=== PATIENT | female | born 1980 | race Caucasian/White ===

== ENCOUNTER 2022-05-23 08:05 | Inpatient (IN) ==
[2022-05-23] MEDS ORDERED: LIDOCAINE 1% LOCAL 20 ML VIAL INFIL PRN (08:13)
[2022-05-23] MEDS ORDERED: PENICILLIN G POTASSIUM 6 MU in DEXTROSE 5% 250 ML IV STA (08:13)
[2022-05-23] MEDS ORDERED: OXYTOCIN 30 UNITS/500 ML BAG IV PRN ×3 (08:13→22:22)
[2022-05-23 08:47] LABS: Hematocrit (blood only) 34.8 % (34.1-44.9); Hemoglobin 11.7 g/dl (12.0-16.0); Mean Corpuscular Hemoglobin 29.1 pg (25.0-34.0); Mean Corpuscular Hgb Conc 33.6 g/dL (32.0-36.0); Mean Corpuscular Volume 86.6 fL (80.0-100.0); Mean Platelet Volume 11.5 fL (9.4-12.3); Platelet Count 256 K/uL (130-400); RDW Coefficient of Variation 14.2 % (11.5-14.5); RDW Standard Deviation 44.8 fL (36.4-46.3); Red Blood Count 4.02 M/uL (3.93-5.22)
[2022-05-23] MEDS: LACTATED RINGER'S 1,000 ML IV PRN ×2 (09:55→19:30)
--- NOTE | 2022-05-23 10:31 | History & Physical Report ---
Date of Service May 23, 2022 Assessment & Plan (1) Supervision of elderly multigravida: Plan: IUP at 39 weeks requesting elective IOL because she prefers a female provider cervical balloon placed and will start pitocin augmentation start PCN when more regular contractions anticipate vaginal Admission and Anticipated Discharge Date Admission Date: May 23, 2022 History of Present Illness Primary Care Provider: Horacio Garcia MD Patient is 41 yo female EDC 05/27/22 who presents at 39+ weeks for elective IOL. complicated by AMA status and hyperthyroidism. testing has been reassuring. GBS -Positive Allergies Allergy/AdvReac Type Severity Reaction Status Date / Time No Known Allergies Allergy Verified 05/22/22 14:47 Home Medications Medication Instructions Recorded Confirmed Type cholecalciferol (vitamin D3) 1,250 1,250 mcg PO .COMPLEX #14 caps 07/30/21 05/23/22 Rx mcg (50,000 unit) capsule (D3-50 Cholecalciferol) prenat.vits,hilario,fmn-mzso-boajt 1 tab PO DAILY 11/08/21 05/23/22 History methimazole 10 mg tablet 10 mg PO DAILY #30 tabs 04/24/22 05/23/22 Rx Patient History Medical History Left thyroid nodule 4.1 cm, S/P FNA 04/2021 Showed AUS, Thyroseq is pending. 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 current occupational status: employed current occupation: microbiolgist Other Information That Helps Us Care for You: No Feels Safe at Home: Yes Safety Concerns: Feels Safe At This Time Assistive Devices: None Review of Systems All systems reviewed & are unremarkable except as noted in HPI & below Physical Exam Constitutional: WD/WN, vitals as above Psychiatric: A+Ox3, euthymic affect Genitourinary: OB Exam Abdomen: + vertex (confirmed by sono) and + estimated weight (7-8 pounds) Manual OB Exam: + cervical dilation 1 cm, + cervical effacement 50% and + station high OB Exam Monitor Tracing: + external FHT monitor used, + external uterine monitor used, + category I and + normal FHT variability cervical balloon placed under direct visualization. balloon filled with 35cc water and placed on traction. patient tolerated procedure well. Results & Data ([facility]) Vital Signs (Past 12 Hours) Vital Signs Temp Pulse Resp BP 05/23/22 09:30 98.2 F 20 05/23/22 10:04 75 05/23/22 10:04 125/72 05/23/22 08:22 98.2 F 91 H 20 128/64 Coding Level of Care Code None Diagnoses Supervision of elderly multigravida O09.529
[2022-05-23] MEDS: PENICILLIN G POTASSIUM 3 MU in DEXTROSE 5% 100 ML IV PRN ×3 (15:15→23:27)
[2022-05-23] MEDS ORDERED: ePHEDrine sulfate 50 MG/ML AMP ONE (15:22)
[2022-05-23] MEDS ORDERED: fentaNYL citrate 100 MCG/2 ML VIAL ONE ×2 (15:22→23:15)
[2022-05-23] MEDS ORDERED: LIDOCAINE 2%/EPINEPHRINE 1:200,000 20 ML SDV ONE (15:22)
[2022-05-23] MEDS ORDERED: SODIUM CHLORIDE 0.9% INJ 10 ML VIAL ONE (15:22)
[2022-05-23] MEDS ORDERED: BUPIVACAINE 0.25% 30 ML VIAL ONE ×2 (15:22→23:15)
[2022-05-23] MEDS ORDERED: fentaNYL 2MCG/ML ROPIVACAINE 1.25MG/ML 100 ML BAG EPI ONE (15:23)
--- NOTE | 2022-05-23 16:01 | Anesthesiology Consultation ---
Date of Service May 23, 2022 Assessment & Plan Chart Review Chart Review: Acceptable Risk for Surgery and Acceptable Risk for Labor Epidural Consults Requested none ASA ASA2 Proposed Anesthesia Anesthesia Type: Labor Epidural Risk / Benefits Reviewed With: PT / POA / Parent / Guardian, Accepts Plan and Informed Consent Obtained History Height/Weight Height: 5 ft 2 in Weight: 101.151 kg Allergies Allergy/AdvReac Type Severity Reaction Status Date / Time No Known Allergies Allergy Verified 05/22/22 14:47 Medications Home Medications Medication Instructions Recorded Confirmed Last Taken cholecalciferol (vitamin D3) 1,250 1,250 mcg PO .COMPLEX #14 caps 07/30/21 05/23/22 05/22/22 15:00 mcg (50,000 unit) capsule (D3-50 Cholecalciferol) prenat.vits,hilario,rqw-rpbk-zeypx 1 tab PO DAILY 11/08/21 05/23/22 05/22/22 15:00 methimazole 10 mg tablet 10 mg PO DAILY #30 tabs 04/24/22 05/23/22 05/22/22 15:00 Active Medications Generic Name Dose Route Start Last Admin Trade Name Freq PRN Reason Stop Dose Admin Lactated Ringer's 1,000 mls @ 125 mls/hr 05/23/22 08:13 05/23/22 09:55 Lr IV 05/25/22 08:12 125 mls/hr .Q8H PRN Administration L&D Protocol Protocol Penicillin G Potassium 3 mu/ 106 mls @ 100 mls/hr 05/23/22 11:13 05/23/22 15:15 Dextrose IV 06/02/22 11:12 100 mls/hr Q4H PRN Administration GBS(+) Until Delivery Oxytocin 30 units in 500 mls @ 10 mls/hr 05/23/22 08:15 05/23/22 15:01 Pitocin IV 05/25/22 08:14 0.6 units/hr .Q24H PRN 10 mls/hr Labor Induction/Augmentation Titration Protocol 0.6 UNITS/HR NPO Date Last Intake of Fluids: 05/23/22 Date Last Intake of Solids: 05/23/22 Past Medical History Medical History Left thyroid nodule 4.1 cm, S/P FNA 04/2021 Showed AUS, Thyroseq is pending. Also has mild subclinical Hyperthyroidism Multinodular goiter No known problems Obesity (BMI 30-39.9) Right thyroid nodule 1.55 cm right isthmus hypoechoic Vitamin D deficiency start vitamin-D replacement with 67676 IU weekly 07/30/2021 Exercise / Class Metabolic Activity II 4-5 Yardwork/Stairs/Walk up hill Past Family History Family History Father Heart disease Hypertension Aunt Uterine cancer Colorectal cancer Denies family history of Ovarian cancer Breast cancer Past Surgical History Surgical History S/P appy Past Anesthesia History No Hx of Anesthesia Complications and No Family Hx of Anesthesia Complications History of PONV No Hx of PONV and No Hx of Motion Sickness Social History Smoking Status: Never smoker Hx Alcohol Use: No Hx Substance Use: No substance use type: does not use Physical Exam Vital Signs Last Vital Signs Temp 36.8 C 05/23/22 12:24 Pulse 73 05/23/22 16:24 Resp 20 05/23/22 12:24 BP 123/76 05/23/22 16:24 Pulse Ox 98 05/23/22 16:23 Constitutional WD/WN, vitals as above cooperative ENMT Thyromental Distance: > or= 3.5 Finger Breadths Mallampati Class: III Neck trachea midline, no thyromegaly + thick neck Respiratory normal respiratory effort, lungs clear to auscultation Cardiovascular RRR, no murmur, no edema Heart Sounds: normal S1 and normal S2 Palpation: normal PMI Musculoskeletal Head/Neck/Chest: normocephalic and head atraumatic Spine: normal cervical ROM Neurologic normal touch/pain/proprioception, CN's II-XI intact bilaterally (Grossly intact) and moves all extremities Psychiatric A+Ox3, euthymic affect Testing Laboratory Results 05/23/22 08:28 Blood Type A Positive 05/23/22 08:28 Antibody Screen NEGATIVE 05/23/22 08:28
[2022-05-23] MEDS ORDERED: ePHEDrine sulfate 50 MG/ML AMP IV PRN (16:28)
[2022-05-23] MEDS ORDERED: METOCLOPRAMIDE HCL 20 MG in SODIUM CHLORIDE 0.9% 50 ML IV PRN (16:28)
[2022-05-23] MEDS ORDERED: NALOXONE HCL 1 MG in SODIUM CHLORIDE 0.9% 1000ML 1,000 ML IV PRN (16:28)
[2022-05-23] MEDS ORDERED: NALOXONE HCL 0.4 MG/1 ML VIAL/CARP IV PRN (16:28)
[2022-05-23] MEDS ORDERED: PROMETHAZINE HCL 25 MG in SODIUM CHLORIDE 0.9% 50 ML IV PRN (16:28)
[2022-05-23] MEDS ORDERED: fentaNYL 2MCG/ML ROPIVACAINE 1.25MG/ML 100 ML BAG EPI PRN (16:28)
[2022-05-23] MEDS ORDERED: NALBUPHINE HCL INJ 10 MG/ML AMP IV PRN (16:28)
[2022-05-23] MEDS ORDERED: diphenhydrAMINE 50 MG/ML VIAL IV PRN (16:28)
[2022-05-23] MEDS ORDERED: ONDANSETRON INJ 2 MG/ML 2 ML VIAL IV PRN (16:28)
[2022-05-23] MEDS ORDERED: NURSING L&D Epidural Breakthrough Pain Update ONE ×2 (22:42→23:39)
[2022-05-24] MEDS ORDERED: IBUPROFEN 600 MG TAB PO PRN (01:28)
[2022-05-24] MEDS ORDERED: ACETAMINOPHEN 325 MG TAB PO PRN (01:28)
[2022-05-24] MEDS ORDERED: DIPHTHERIA/TETANUS/PERTUSSIS 0.5 ML SYR/VIAL IM ONE (01:28)
[2022-05-24] MEDS ORDERED: HYDROCORTISONE ACETATE 25 MG SUPP PR PRN (01:28)
[2022-05-24] MEDS ORDERED: oxyCODONE/ACETAMINOPHEN 5mg/325mg TAB PO PRN (01:28)
[2022-05-24] MEDS ORDERED: BENZOCAINE 20% AER SPR 82.5 GM CAN EXT PRN (01:28)
[2022-05-24] MEDS ORDERED: OXYTOCIN 30 UNITS/500 ML BAG IV PRN (01:28)
[2022-05-24] MEDS ORDERED: ceFAZolin 2000MG 2,000 MG/15 ML SYR IV SCH (01:30)
[2022-05-24] MEDS ORDERED: ceFAZolin 2000MG 2,000 MG/15 ML SYR IV ONE (01:43)
--- NOTE | 2022-05-24 01:44 | Delivery Summary ---
Vaginal Delivery Summary Date of Service May 24, 2022 Vaginal Delivery Summary and 1st Degree LAC Patient is a 41-year-old 2 para 1-0-0-1 female EDC of 05/27/2022 presents at 39-4/7 weeks for elective induction of labor because of preference for a female provider. A cervical balloon was placed on admission and Pitocin augmentation was begun. Membranes were then ruptured for a copious amount of meconium stained fluid. She received effective epidural analgesia. She progressed to complete and pushed effectively over intact perineum for delivery of a viable female infant. After the head delivered the rest the infant delivered easily and was placed on the mother's abdomen for further attention and drying. The cord was clamped and cut after 1 minute. The infant was vigorous and crying and moving all 4 limbs. While delivering the placenta the umbilical cord avulsed with gentle traction. The placenta was then manually removed. Post extraction exploration of the uterine cavity revealed no retained membranes or placental tissue. Fundus was firm and bleeding was minimal. Estimated blood loss is 200 cc. First-degree laceration was repaired with 3-0 chromic in the usual fashion. Mother and infant were doing well after delivery. [facility] [place] Vaginal Delivery Charge Delivery Type Details: and 1st Degree LAC
--- NOTE | 2022-05-24 06:05 | Anesthesia Procedure Note ---
Date of Service May 24, 2022 Anesthesia Post Epidural Note Vital Signs Vital Signs: Temp Pulse Resp BP Pulse Ox O2 Del Method 36.9 C 95 H 17 109/75 98 05/24/22 03:45 05/24/22 03:45 05/24/22 03:45 05/24/22 03:45 05/24/22 03:45 05/24/22 03:45 Pain Intensity Back: Pain Intensity: 5 Notes Mental Status: alert / awake / arousable and participated in evaluation Nausea / Vomiting: adequately controlled Pain: adequately controlled Airway Patency, RR, SpO2: stable & adequate BP & HR: stable & adequate Hydration State: stable & adequate Neuraxial Anesthesia: was administered and sensory block resolved Anesthetic Complications: no major complications apparent and Pt Satisfied with anesthetic care Epidural: Removed without complications and With tip intact
--- NOTE | 2022-05-24 08:52 | Obstetrical Progress Note ---
Date of Service May 24, 2022 Assessment & Plan (1) Encounter for care and examination after delivery: satisfactory course fundus tender but understandably because of manual extraction of placenta and fundal massage continue current plan Subjective Ambulation: ambulating normally Voiding: no voiding problems Passing Gas:: Yes Diet Tolerance:: regular diet Lochia:: Small Feeding Type:: breast feeding Review of Systems All systems reviewed & are unremarkable except as noted in HPI & below Physical Exam Constitutional WD/WN, vitals as above Psychiatric A+Ox3, euthymic affect Genitourinary OB Exam Abdomen: + fundal height Fundus: + firm and + relation to umbilicus (at U) Results & Data ([facility]) Vital Signs (Past 12 Hours) Vital Signs Temp Pulse Pulse Resp BP BP Pulse Ox 05/24/22 03:45 98.4 F 95 H 17 109/75 98 05/24/22 03:20 18 05/24/22 02:50 18 05/24/22 02:20 18 05/24/22 02:05 18 05/24/22 01:50 18 05/24/22 01:35 18 05/24/22 01:20 98.8 F 18 05/23/22 23:00 98.8 F 18 05/24/22 03:21 100 H 116/69 05/24/22 03:12 97 H 109/61 05/24/22 03:02 106 H 121/62 05/24/22 02:52 96 H 125/69 05/24/22 02:42 96 H 123/64 05/24/22 02:32 93 H 123/69 05/24/22 02:22 96 H 116/71 05/24/22 02:12 100 H 109/68 05/24/22 02:04 96 H 96 05/24/22 02:02 98 H 115/62 05/24/22 01:59 99 H 98 05/24/22 01:54 94 H 96 05/24/22 01:52 89 104/60 05/24/22 01:49 104 H 96 05/24/22 01:45 94 H 116/62 05/24/22 01:44 91 H 96 05/24/22 01:39 99 H 96 05/24/22 01:34 103 H 97 05/24/22 01:29 104 H 97 05/24/22 01:24 96 H 97 05/24/22 01:22 96 H 119/73 05/24/22 01:19 97 H 96 05/24/22 01:14 95 05/24/22 01:14 97 H 05/24/22 01:14 99 H 94 05/24/22 01:09 95 H 96 05/24/22 01:04 97 H 96 05/24/22 00:59 99 H 96 05/24/22 00:54 107 H 96 05/24/22 00:49 106 H 96 05/24/22 00:44 110 H 100 05/24/22 00:38 99 H 98 05/24/22 00:33 114 H 99 05/24/22 00:28 118 H 98 05/24/22 00:23 123 H 99 05/24/22 00:18 99 05/24/22 00:18 101 H 05/24/22 00:18 95 H 136/73 05/24/22 00:13 93 H 99 05/24/22 00:08 93 H 99 05/24/22 00:03 92 H 99 05/24/22 00:02 85 119/66 05/23/22 23:58 98 05/23/22 23:58 90 05/23/22 23:53 97 05/23/22 23:53 98 H 05/23/22 23:48 98 05/23/22 23:48 90 05/23/22 23:48 132/73 05/23/22 23:43 98 05/23/22 23:43 92 H 05/23/22 23:38 97 05/23/22 23:38 85 05/23/22 23:33 99 05/23/22 23:33 95 H 05/23/22 23:32 93 H 05/23/22 23:32 180/69 H 05/23/22 23:28 98 05/23/22 23:28 95 H 05/23/22 23:23 98 05/23/22 23:23 93 H 05/23/22 23:18 99 05/23/22 23:18 94 H 05/23/22 23:17 93 H 05/23/22 23:17 137/76 05/23/22 23:13 99 05/23/22 23:13 85 05/23/22 23:08 98 05/23/22 23:08 88 05/23/22 23:03 98 05/23/22 23:03 90 05/23/22 23:03 132/82 05/23/22 22:58 98 05/23/22 22:58 92 H 05/23/22 22:53 98 05/23/22 22:53 92 H 05/23/22 22:48 97 05/23/22 22:48 88 05/23/22 22:48 131/80 05/23/22 22:43 97 05/23/22 22:43 87 05/23/22 22:38 97 05/23/22 22:38 86 05/23/22 22:33 98 05/23/22 22:33 91 H 05/23/22 22:33 93 H 05/23/22 22:33 134/71 05/23/22 22:15 98 05/23/22 22:28 98 05/23/22 22:28 90 05/23/22 22:15 16 05/23/22 22:15 98.4 F 16 05/23/22 22:23 99 05/23/22 22:23 102 H 05/23/22 22:18 99 05/23/22 22:18 91 H 05/23/22 22:16 88 05/23/22 22:16 108/76 05/23/22 22:13 99 05/23/22 22:13 95 H 05/23/22 22:08 100 05/23/22 22:08 88 05/23/22 22:03 99 05/23/22 22:03 92 H 05/23/22 22:02 93 H 05/23/22 22:02 124/80 05/23/22 21:58 100 05/23/22 21:58 88 05/23/22 21:53 99 05/23/22 21:53 89 05/23/22 21:48 99 05/23/22 21:48 81 05/23/22 21:47 80 05/23/22 21:47 122/69 05/23/22 21:43 100 05/23/22 21:43 85 05/23/22 21:38 99 05/23/22 21:38 86 05/23/22 21:33 99 05/23/22 21:33 87 05/23/22 21:34 88 05/23/22 21:34 139/69 05/23/22 21:28 100 05/23/22 21:28 87 05/23/22 21:23 99 05/23/22 21:23 86 05/23/22 21:18 98 05/23/22 21:18 86 05/23/22 21:17 96 H 05/23/22 21:17 123/89 05/23/22 21:13 99 05/23/22 21:13 85 05/23/22 21:08 99 05/23/22 21:08 88 05/23/22 21:03 99 05/23/22 21:03 91 H 05/23/22 21:01 85 05/23/22 21:01 112/69 05/23/22 20:58 99 05/23/22 20:58 85 05/23/22 20:53 99 05/23/22 20:53 89 O2 Del Method 05/24/22 03:45 Room Air 05/24/22 03:20 05/24/22 02:50 05/24/22 02:20 05/24/22 02:05 05/24/22 01:50 05/24/22 01:35 05/24/22 01:20 05/23/22 23:00 05/24/22 03:21 05/24/22 03:12 05/24/22 03:02 05/24/22 02:52 05/24/22 02:42 05/24/22 02:32 05/24/22 02:22 05/24/22 02:12 05/24/22 02:04 05/24/22 02:02 05/24/22 01:59 05/24/22 01:54 05/24/22 01:52 05/24/22 01:49 05/24/22 01:45 05/24/22 01:44 05/24/22 01:39 05/24/22 01:34 05/24/22 01:29 05/24/22 01:24 05/24/22 01:22 05/24/22 01:19 05/24/22 01:14 05/24/22 01:14 05/24/22 01:14 05/24/22 01:09 05/24/22 01:04 05/24/22 00:59 05/24/22 00:54 05/24/22 00:49 05/24/22 00:44 05/24/22 00:38 05/24/22 00:33 05/24/22 00:28 05/24/22 00:23 05/24/22 00:18 05/24/22 00:18 05/24/22 00:18 05/24/22 00:13 05/24/22 00:08 05/24/22 00:03 05/24/22 00:02 05/23/22 23:58 05/23/22 23:58 05/23/22 23:53 05/23/22 23:53 05/23/22 23:48 05/23/22 23:48 05/23/22 23:48 05/23/22 23:43 05/23/22 23:43 05/23/22 23:38 05/23/22 23:38 05/23/22 23:33 05/23/22 23:33 05/23/22 23:32 05/23/22 23:32 05/23/22 23:28 05/23/22 23:28 05/23/22 23:23 05/23/22 23:23 05/23/22 23:18 05/23/22 23:18 05/23/22 23:17 05/23/22 23:17 05/23/22 23:13 05/23/22 23:13 05/23/22 23:08 05/23/22 23:08 05/23/22 23:03 05/23/22 23:03 05/23/22 23:03 05/23/22 22:58 05/23/22 22:58 05/23/22 22:53 05/23/22 22:53 05/23/22 22:48 05/23/22 22:48 05/23/22 22:48 05/23/22 22:43 05/23/22 22:43 05/23/22 22:38 05/23/22 22:38 05/23/22 22:33 05/23/22 22:33 05/23/22 22:33 05/23/22 22:33 05/23/22 22:15 05/23/22 22:28 05/23/22 22:28 05/23/22 22:15 05/23/22 22:15 05/23/22 22:23 05/23/22 22:23 05/23/22 22:18 05/23/22 22:18 05/23/22 22:16 05/23/22 22:16 05/23/22 22:13 05/23/22 22:13 05/23/22 22:08 05/23/22 22:08 05/23/22 22:03 05/23/22 22:03 05/23/22 22:02 05/23/22 22:02 05/23/22 21:58 05/23/22 21:58 05/23/22 21:53 05/23/22 21:53 05/23/22 21:48 05/23/22 21:48 05/23/22 21:47 05/23/22 21:47 05/23/22 21:43 05/23/22 21:43 05/23/22 21:38 05/23/22 21:38 05/23/22 21:33 05/23/22 21:33 05/23/22 21:34 05/23/22 21:34 05/23/22 21:28 05/23/22 21:28 05/23/22 21:23 05/23/22 21:23 05/23/22 21:18 05/23/22 21:18 05/23/22 21:17 05/23/22 21:17 05/23/22 21:13 05/23/22 21:13 05/23/22 21:08 05/23/22 21:08 05/23/22 21:03 05/23/22 21:03 05/23/22 21:01 05/23/22 21:01 05/23/22 20:58 05/23/22 20:58 05/23/22 20:53 05/23/22 20:53
[2022-05-24] MEDS: PRENATAL VITAMIN 1 TAB PO SCH (09:43)
[2022-05-24] MEDS: DOCUSATE SODIUM 100 MG CAP PO SCH ×2 (09:44→19:53)
[2022-05-24] MEDS: methIMAzole 5 MG TABLET PO SCH (09:44)
[2022-05-25 07:05] LABS: Hemoglobin 10.7 g/dl (12.0-16.0); Mean Corpuscular Hemoglobin 28.8 pg (25.0-34.0); Mean Corpuscular Hgb Conc 32.4 g/dL (32.0-36.0); Mean Corpuscular Volume 88.7 fL (80.0-100.0); Mean Platelet Volume 11.4 fL (9.4-12.3); Platelet Count 238 K/uL (130-400); RDW Coefficient of Variation 14.5 % (11.5-14.5); RDW Standard Deviation 46.4 fL (36.4-46.3); Red Blood Count 3.72 M/uL (3.93-5.22); White Blood Count 11.46 K/ul (4.8-10.8)
--- NOTE | 2022-05-25 07:17 | Obstetrical Progress Note ---
Date of Service May 25, 2022 Assessment & Plan (1) Encounter for care and examination after delivery: day #1 patient meets criteria for discharge as she is having minimal pain or bleeding no extremity pain she wishes to go home Results & Data ([facility]) Vital Signs (Past 12 Hours) Vital Signs Temp Pulse Resp BP 05/25/22 01:06 98.4 F 71 18 103/69 05/24/22 19:57 98.2 F 88 18 120/76
[2022-05-25] MEDS: DOCUSATE SODIUM 100 MG CAP PO SCH (07:43)
[2022-05-25] MEDS: PRENATAL VITAMIN 1 TAB PO SCH (07:43)
[2022-05-25] MEDS: methIMAzole 5 MG TABLET PO SCH (07:44)
[2022-05-25] MEDS ORDERED: bisacodyL 5 MG TABEC PO SCH (20:00)
[2022-05-26] MEDS ORDERED: bisacodyL 10 MG SUPP PR PRN
== END 2022-05-25 14:50 | disposition home or self-care (01) | DRG 807 ==
LOC: 4S1 08:05 → 4E2 05-24 03:59